=== PATIENT | male | born 1955 | race African-American/Black ===

== ENCOUNTER 2018-10-16 21:39 | Observation (INO) ==
--- NOTE | 2018-10-16 22:25 | XR ---
EXAM DATE: 10/16/2018 10:18 PM EST AGE/SEX: 63 years / Male INDICATIONS: Chest pain. CLINICAL DATA: This is the patient's initial encounter. Patient reports that signs and symptoms have been present for 1 day and indicates a pain score of 7/10. MEDICAL/SURGICAL HISTORY: Diabetes. None. COMPARISON: No prior exams available for comparison. FINDINGS: A single AP view of the chest demonstrates mild infiltrate at the right lung base medially. No effusi on. No pneumothorax. Heart size normal. CONCLUSION: Mild right basilar airspace disease. Differential diagnosis includes mild bronchopneumonia or aspirat ion. No effusion. Electronically signed by: Hussein Araya MD Board Certified Radiologist 10/16/2018 10:24 PM EST
[2018-10-16] MEDS ORDERED: levoFLOXacin 500 MG Tablet PO ONE (22:35)
[2018-10-16 22:51] LABS: Baso # (Auto) 0.1 th/mm3 (0.0-0.2); Baso % (Auto) 0.7 % (0.0-2.0); Eos # (Auto) 0.1 th/mm3 (0.0-0.4); Eos % (Auto) 0.6 % (0.0-4.0); Hematocrit 47.6 % (39.0-51.0); Hemoglobin 16.1 gm/dL (13.0-17.0); Lymph # (Auto) 2.1 th/mm3 (1.0-4.8); Lymph % (Auto) 15.2 % (9.0-44.0); Mean Corpuscular HGB Conc 33.9 % (32.0-36.0); Mean Corpuscular Hemoglobin 30.8 pg (27.0-34.0); Mean Corpuscular Volume 90.7 fL (80.0-100.0); Mean Platelet Volume 10.9 fL (7.0-11.0); Mono # (Auto) 1.1 th/mm3 (0.0-0.9); Mono % (Auto) 7.7 % (0.0-8.0); Neut # (Auto) 10.5 th/mm3 (1.8-7.7); Neut % (Auto) 75.8 % (16.0-70.0); Platelet Count 150 th/mm3 (150-450); Red Blood Count 5.25 mil/mm3 (4.50-5.90); Red Cell Distribution Width 13.4 % (11.6-17.2); White Blood Count 13.9 th/mm3 (4.0-11.0)
--- NOTE | 2018-10-16 22:54 | ED ---
HPI General Chief Complaint: Chest Pain Stated Complaint: chest pain Time Seen by Provider: 10/16/18 21:57 Source: patient Mode of arrival: ambulatory Limitations: no limitations History of Present Illness HPI narrative: 63-year-old male came to the emergency room brought in by EMS with history of chest pain that is progressively worsening since yesterday. Patient describes the pain on the left side of his chest without any radiation. No aggravating or relieving factors identified. He describes the pain as throbbing. Patient has been coughing and says that he recently got over a cold. Vital signs were relatively stable. 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 He is from [place] and has history of diabetes and hypertension. He is noncompliant with his medications however. Patient is currently a smoker. He is never had any coronary artery disease or coronary artery disease workup in the past. Related Data Home Medications Medication Instructions Recorded Confirmed Humalog KwikPen Insulin 10/16/18 amlodipine [Norvasc] 5 mg PO DAILY 10/16/18 10/16/18 insulin glargine [Lantus Solostar 10/16/18 U-100 Insulin] Previous Rx's Medication Instructions Recorded levofloxacin [Levaquin] 500 mg PO DAILY 10 Days #10 tab 10/16/18 Allergies Allergy/AdvReac Type Severity Reaction Status Date / Time No Known Allergies Allergy Verified 10/16/18 21:49 Review of Systems ROS: all other systems reviewed are negative [facility] Medical History Medical History Diabetes (Acute) Diabetic neuropathy (Acute) Hypertension (Acute) Social History Social History Substance History: No History of Abuse Second Hand Smoke Exposure: Yes Smoking Status: Current every day smoker Tobacco Type: Cigarettes How Often Do You Have a Drink Containing Alcohol: Monthly or less Recent Travel in [facility] within the Last 8 Weeks: No Recent Out of Country Travel within the Last 8 Weeks: No Immunization History Tetanus Immunization: <5 Years Exam Narrative Exam Narrative: GENERAL: Awake, alert, mild distress SKIN: Focused skin assessment warm/dry. HEAD: Atraumatic. Normocephalic. EYES: Pupils equal and round. No scleral icterus. No injection or drainage. ENT: No nasal bleeding or discharge. Mucous membranes pink and moist. NECK: Trachea midline. No JVD. CARDIOVASCULAR: Regular rate and rhythm. No murmur appreciated. RESPIRATORY: No accessory muscle use. Clear to auscultation. Breath sounds equal bilaterally. GASTROINTESTINAL: Abdomen soft, non-tender, nondistended. Hepatic and splenic margins not palpable. MUSCULOSKELETAL: No obvious deformities. No clubbing. No cyanosis. No edema. NEUROLOGICAL: Awake and alert. No obvious cranial nerve deficits. Motor grossly within normal limits. Normal speech. PSYCHIATRIC: Appropriate mood and affect; insight and judgment normal. Course Initial Documented Vital Signs Temperature 99.3 F 10/16/18 21:42 Pulse Rate 102 H 10/16/18 21:42 Blood Pressure 133/83 10/16/18 21:42 Pulse Oximetry 97 10/16/18 21:42 Last Documented Vital Signs Temperature 99.5 F 10/17/18 06:29 Pulse Rate 76 10/17/18 06:29 Respiratory Rate 12 10/17/18 06:29 Blood Pressure 131/68 10/17/18 06:29 Pulse Oximetry 96 10/17/18 07:26 Medical Decision Making MDM Narrative Medical decision making narrative: 10:56 PM awaiting for the blood test result. Given his significant past and current medical history patient will require admission to the chest pain center to be ruled out. Chest x-ray was suggestive of possible pneumonia which correlates with his symptoms. Have given him a dose of Levaquin and will give him a prescription as well. Medical Screen Exam Complete: Yes Emergency Medical Condition: Yes Lab Data Result diagrams: 10/16/18 22:25 10/16/18 22:25 Lab Results 10/16/18 10/16/18 10/17/18 Range/Units 22:25 22:25 01:20 WBC 13.9 H (4.0-11.0) th/mm3 RBC 5.25 (4.50-5.90) mil/mm3 Hgb 16.1 (13.0-17.0) gm/dL Hct 47.6 (39.0-51.0) % MCV 90.7 (80.0-100.0) fL MCH 30.8 (27.0-34.0) pg MCHC 33.9 (32.0-36.0) % RDW 13.4 (11.6-17.2) % Plt Count 150 (150-450) th/mm3 MPV 10.9 (7.0-11.0) fL Neut % (Auto) 75.8 H (16.0-70.0) % Lymph % (Auto) 15.2 (9.0-44.0) % Morrison % (Auto) 7.7 (0.0-8.0) % Eos % (Auto) 0.6 (0.0-4.0) % Baso % (Auto) 0.7 (0.0-2.0) % Neut # (Auto) 10.5 H (1.8-7.7) th/mm3 Lymph # (Auto) 2.1 (1.0-4.8) th/mm3 Morrison # (Auto) 1.1 H (0.0-0.9) th/mm3 Eos # (Auto) 0.1 (0.0-0.4) th/mm3 Baso # (Auto) 0.1 (0.0-0.2) th/mm3 WBC Differential . Differential Comment Auto diff final Sodium 134 L (136-145) meq/L Potassium 4.3 (3.5-5.1) meq/L Chloride 99 (98-107) meq/L Carbon Dioxide 27.5 (21.0-32.0) meq/L Anion Gap 8 (5-15) meq/L BUN 18 (7-18) mg/dL Creatinine 1.62 H (0.60-1.30) mg/dL Estimated GFR 53 L (>89) mL/min POC Glucose (68-110) mg/dl Random Glucose 414 H (74-106) mg/dL Calcium 9.2 (8.5-10.1) mg/dL Total Bilirubin 1.1 H (0.2-1.0) mg/dL AST 36 (15-37) U/L ALT 59 (12-78) U/L Alkaline Phosphatase 84 (45-117) U/L Total Creatine Kinase 125 (39-308) U/L Troponin I Less than 0.02 L Less than 0.02 L (0.02-0.05) ng/mL Total Protein 8.6 H (6.4-8.2) g/dL Albumin 4.2 (3.4-5.0) g/dL Urine Opiates Screen (Neg) Ur Barbiturates Screen (Neg) Ur Amphetamines Screen (Neg) U Benzodiazepines Scrn (Neg) Urine Cocaine Screen (Neg) U Cannabinoids Screen (Neg) 10/17/18 10/17/18 10/17/18 Range/Units 02:46 04:09 04:25 WBC (4.0-11.0) th/mm3 RBC (4.50-5.90) mil/mm3 Hgb (13.0-17.0) gm/dL Hct (39.0-51.0) % MCV (80.0-100.0) fL MCH (27.0-34.0) pg MCHC (32.0-36.0) % RDW (11.6-17.2) % Plt Count (150-450) th/mm3 MPV (7.0-11.0) fL Neut % (Auto) (16.0-70.0) % Lymph % (Auto) (9.0-44.0) % Morrison % (Auto) (0.0-8.0) % Eos % (Auto) (0.0-4.0) % Baso % (Auto) (0.0-2.0) % Neut # (Auto) (1.8-7.7) th/mm3 Lymph # (Auto) (1.0-4.8) th/mm3 Morrison # (Auto) (0.0-0.9) th/mm3 Eos # (Auto) (0.0-0.4) th/mm3 Baso # (Auto) (0.0-0.2) th/mm3 WBC Differential Differential Comment Sodium (136-145) meq/L Potassium (3.5-5.1) meq/L Chloride (98-107) meq/L Carbon Dioxide (21.0-32.0) meq/L Anion Gap (5-15) meq/L BUN (7-18) mg/dL Creatinine (0.60-1.30) mg/dL Estimated GFR (>89) mL/min POC Glucose 262 H (68-110) mg/dl Random Glucose (74-106) mg/dL Calcium (8.5-10.1) mg/dL Total Bilirubin (0.2-1.0) mg/dL AST (15-37) U/L ALT (12-78) U/L Alkaline Phosphatase (45-117) U/L Total Creatine Kinase 116 (39-308) U/L Troponin I Less than 0.02 L (0.02-0.05) ng/mL Total Protein (6.4-8.2) g/dL Albumin (3.4-5.0) g/dL Urine Opiates Screen Neg (Neg) Ur Barbiturates Screen Neg (Neg) Ur Amphetamines Screen Neg (Neg) U Benzodiazepines Scrn Neg (Neg) Urine Cocaine Screen Neg (Neg) U Cannabinoids Screen Neg (Neg) 10/17/18 Range/Units 05:02 WBC (4.0-11.0) th/mm3 RBC (4.50-5.90) mil/mm3 Hgb (13.0-17.0) gm/dL Hct (39.0-51.0) % MCV (80.0-100.0) fL MCH (27.0-34.0) pg MCHC (32.0-36.0) % RDW (11.6-17.2) % Plt Count (150-450) th/mm3 MPV (7.0-11.0) fL Neut % (Auto) (16.0-70.0) % Lymph % (Auto) (9.0-44.0) % Morrison % (Auto) (0.0-8.0) % Eos % (Auto) (0.0-4.0) % Baso % (Auto) (0.0-2.0) % Neut # (Auto) (1.8-7.7) th/mm3 Lymph # (Auto) (1.0-4.8) th/mm3 Morrison # (Auto) (0.0-0.9) th/mm3 Eos # (Auto) (0.0-0.4) th/mm3 Baso # (Auto) (0.0-0.2) th/mm3 WBC Differential Differential Comment Sodium (136-145) meq/L Potassium (3.5-5.1) meq/L Chloride (98-107) meq/L Carbon Dioxide (21.0-32.0) meq/L Anion Gap (5-15) meq/L BUN (7-18) mg/dL Creatinine (0.60-1.30) mg/dL Estimated GFR (>89) mL/min POC Glucose 197 H (68-110) mg/dl Random Glucose (74-106) mg/dL Calcium (8.5-10.1) mg/dL Total Bilirubin (0.2-1.0) mg/dL AST (15-37) U/L ALT (12-78) U/L Alkaline Phosphatase (45-117) U/L Total Creatine Kinase (39-308) U/L Troponin I (0.02-0.05) ng/mL Total Protein (6.4-8.2) g/dL Albumin (3.4-5.0) g/dL Urine Opiates Screen (Neg) Ur Barbiturates Screen (Neg) Ur Amphetamines Screen (Neg) U Benzodiazepines Scrn (Neg) Urine Cocaine Screen (Neg) U Cannabinoids Screen (Neg) Imaging Data Radiologist's impression: Chest X-Ray 10/16/18 22:06 CONCLUSION: Mild right basilar airspace disease. Differential diagnosis includes mild bronchopneumonia or aspiration. No effusion. ECG Data Attestation: I personally reviewed and interpreted this ECG as follows: Interpretation: Twelve-lead EKG was reviewed by me. Normal sinus rhythm, normal axis, nonspecific ST-T wave changes. Heart rate of 90 bpm. Discharge Plan Discharge Disposition Patient Disposition: ED Admit(ED Internal Use Only) Discharge Order Discharge Orders: ED Use Only Admit Order (Routine); Ordered 10/16/18 Ordered By: Diana Corea Physicians Team ED Provider: Diana Corea Primary Care Provider: Primary Care Didi Banks Attending Provider: Anderson Leal Status ED Status: Left Department Discharge Information Discharge Date/Time: 10/17/18 05:13
[2018-10-16 23:09] LABS: Alanine Aminotransferase 59 U/L (12-78); Albumin 4.2 g/dL (3.4-5.0); Alkaline Phosphatase 84 U/L (45-117); Anion Gap 8 meq/L (5-15); Aspartate Aminotransferase 36 U/L (15-37); Blood Urea Nitrogen 18 mg/dL (7-18); Calcium 9.2 mg/dL (8.5-10.1); Carbon Dioxide 27.5 meq/L (21.0-32.0); Chloride 99 meq/L (98-107); Glomerular Filtration Rate 53 mL/min (>89); Glucose,Random 414 mg/dL (74-106); Potassium 4.3 meq/L (3.5-5.1); Sodium 134 meq/L (136-145); Total Protein 8.6 g/dL (6.4-8.2)
[2018-10-17 02:01] LABS: Creatine Kinase 125 U/L (39-308)
[2018-10-17 03:23] LABS: Amphetamine Screen,Urine Neg (Neg); Barbiturate Screen,Urine Neg (Neg); Cannabinoid Screen,Urine Neg (Neg); Cocaine Screen,Urine Neg (Neg)
[2018-10-17 03:24] LABS: Opiate Screen,Urine Neg (Neg)
[2018-10-17 05:18] LABS: Creatine Kinase 116 U/L (39-308)
[2018-10-17 06:31] VITALS: BP 131/68; PULSE 76; RESP 12; TEMP 99.5; O2SAT 96
--- NOTE | 2018-10-17 12:50 | ECG ---
Date Performed: 10/17/2018 Time Performed: 04:33:58 PTAGE: 63 years EKG: Sinus rhythm NONSPECIFIC T-WAVE ABNORMALITY BORDERLINE ECG NO SIG CHANGES PREVIOUS TRACING : 10/16/2018 23.55 DOCTOR: Anderson Leal Interpretating Date/Time 10/17/2018 12:49:23
--- NOTE | 2018-10-17 12:51 | ECG ---
Date Performed: 10/16/2018 Time Performed: 23:55:15 PTAGE: 63 years EKG: Sinus rhythm WITH SINUS ARRHYTHMIA NONSPECIFIC T-WAVE ABNORMALITY BORDERLINE ECG NO SIG CHANGES PREVIOUS TRACING : 10/16/2018 21.59 DOCTOR: Anderson Leal Interpretating Date/Time 10/17/2018 12:50:00
--- NOTE | 2018-10-17 12:52 | ECG ---
Date Performed: 10/16/2018 Time Performed: 21:59:20 PTAGE: 63 years EKG: Sinus rhythm POSSIBLE LEFT ATRIAL ENLARGEMENT NONSPECIFIC T-WAVE ABNORMALITY BORDERLINE ECG NO PREVIOUS TRACING DOCTOR: Anderson Leal Interpretating Date/Time 10/17/2018 12:50:12
== END 2018-10-17 08:11 | disposition left against medical advice (07) ==
LOC: NEDA 21:39 → NEPE 21:39 → NEPFCDU 10-17 05:10
PROVIDERS: ADMIT Internal Medicine Interventional Cardiology; ATTEND Internal Medicine Interventional Cardiology
DX: R07.9 Chest pain, unspecified; Z91.14 Patient's other noncompliance with medication regimen; E11.40 Type 2 diabetes mellitus with diabetic neuropathy, unspecified; R05 Cough; I10 Essential (primary) hypertension; Z79.899 Other long term (current) drug therapy; F17.210 Nicotine dependence, cigarettes, uncomplicated
CPT/HCPCS: 71010; 71045; 80053; 80307; 82550; 82948; 82962; 84484; 85025; 87040; 93005; 96372; 99285; G0378; J1815